=== PATIENT | male | born 1990 | race American Indian/Alaskan Native ===

== ENCOUNTER 2017-05-29 22:43 | Observation (INO) | payer SELFPAY ==
[2017-05-29 22:44] VITALS: BMI 23.5
[2017-05-29 23:30] LABS: BASO # 0.1 K/uL (0.0-0.2); BASO % 0.6 % (0.0-2.0); EOS # 0.2 K/uL (0.0-0.7); EOS % 1.7 % (0.0-4.0); HEMATOCRIT 50.7 % (35.0-51.0); LYMPH # 2.6 K/uL (1.0-4.3); LYMPH % 22.1 % (20.0-40.0); MEAN CELL VOLUME 97.4 fl (80.0-94.0); MEAN CORPUSCULAR HEMOGLOBIN 32.4 pg (27.0-31.0); MEAN CORPUSCULAR HGB CONC 33.2 g/dL (33.0-37.0); MEAN PLATELET VOLUME 7.7 fl (7.2-11.7); MONO # 1.1 K/uL (0.0-0.8); MONO % 9.6 % (0.0-10.0); NEUT # 7.8 K/uL (1.8-7.0); NRBC % 0.1 % (0.0-0.0); RED CELL DISTRIBUTION WIDTH 13.8 % (11.5-14.5); WHITE BLOOD COUNT 11.8 K/uL (4.8-10.8)
[2017-05-29 23:40] LABS: ALCOHOL SERUM 184 mg/dl (0-10); ALKALINE PHOSPHATASE 76 U/L (38-126); ALT/SGPT 43 U/L (21-72); AST/SGOT 39 U/L (17-59); BILIRUBIN,TOTAL 0.6 mg/dl (0.2-1.3); BLOOD UREA NITROGEN 11 mg/dl (9-20); CALCIUM 10.3 mg/dL (8.4-10.2); CARBON DIOXIDE 22 mmol/L (22-30); CHLORIDE 107 mmol/L (98-107); GFR AFRICAN-AMERICAN > 60; GLUCOSE,RANDOM 90 mg/dL (75-110); POTASSIUM 4.4 MMOL/L (3.6-5.0); SODIUM 146 mmol/l (132-148); TOTAL PROTEIN 8.6 G/DL (6.3-8.2)
--- NOTE | 2017-05-29 23:44 | ED PDOC ---
HPI: Psych/Substance Abuse Time Seen by Provider: 05/29/17 22:53 Chief Complaint (Nursing): Substance Abuse Chief Complaint (Provider): Substance Abuse ED Caveat: Intoxicated History Per: Patient History/Exam Limitations: intoxication Onset/Duration Of Symptoms: Days (x 1) Current Symptoms Are (Timing): Still Present Additional History Per: EMS Additional Complaint(s): Julio is a 26 y/o male who was brought to the ED by EMS for alcohol intoxication. Patient was found intoxicated in public. No medical complaints at this time. PMD: Unknown Past Medical History Reviewed: Historical Data, Nursing Documentation, Vital Signs Vital Signs: Last Vital Signs Temp 98.6 F 05/29/17 22:47 Pulse 98 H 05/29/17 22:47 Resp 18 05/29/17 22:47 BP 134/84 05/29/17 22:47 Pulse Ox 98 05/29/17 22:47 - Medical History PMH: No Chronic Diseases Denies: Chronic Kidney Disease - Family History Family History: States: Unknown Family Hx - Immunization History Hx Tetanus Toxoid Vaccination: Yes - Home Medications Home Medications: Ambulatory Orders Medication Instructions Recorded Unobtainable 05/30/17 - Allergies Allergies/Adverse Reactions: Allergies Allergy/AdvReac Type Severity Reaction Status Date / Time No Known Allergies Allergy Verified 06/14/16 10:27 Review of Systems Review Of Systems: ROS cannot be obtained secondary to pt's inabilty to answer questions. Physical Exam - Reviewed Nursing Documentation Reviewed: Yes Vital Signs Reviewed: Yes - Physical Exam Appears: Positive for: Non-toxic, No Acute Distress Head Exam: Positive for: ATRAUMATIC, NORMAL INSPECTION, NORMOCEPHALIC Skin: Positive for: Normal Color, Warm, Dry Eye Exam: Positive for: EOMI, Normal appearance, PERRL Neck: Positive for: Normal, Painless ROM Cardiovascular/Chest: Positive for: Regular Rate, Rhythm. Negative for: Murmur Respiratory: Positive for: Normal Breath Sounds. Negative for: Accessory Muscle Use, Respiratory Distress Gastrointestinal/Abdominal: Positive for: Normal Exam, Soft. Negative for: Tenderness Back: Positive for: Normal Inspection. Negative for: L CVA Tenderness, R CVA Tenderness, Vertebral Tenderness Extremity: Positive for: Normal ROM. Negative for: Deformity Neurologic/Psych: Positive for: Other (Slurred speech) - Laboratory Results Result Diagrams: 05/29/17 23:20 05/29/17 23:20 - ECG O2 Sat by Pulse Oximetry: 98 (RA) Pulse Ox Interpretation: Normal - Critical Care Total Time (In Min): 30 Medical Decision Making Medical Decision Making: Time: 22:54 Initial Impression: 26 y/o intoxicated male Initial Plan: --Accucheck --CBC --CMP --Urine drug screen --Alcohol serum --Placed on ED-OBS for alcohol intoxication See ED-OBS tab for all further documentation Scribe Attestation: Documented by Daphnie River, acting as a scribe for Gavin Lozada MD Provider Scribe Attestation: All medical record entries made by the Scribe were at my direction and personally dictated by me. I have reviewed the chart and agree that the record accurately reflects my personal performance of the history, physical exam, medical decision making, and the department course for this patient. I have also personally directed, reviewed, and agree with the discharge instructions and disposition. ED OBSERVATION Date of observation admission: 05/29/17 Time of observation admission: 22:54 - Observation admission statement Patient is being placed in observation because:: Alcohol intoxication - Goals of Observation Goals of observation are:: Clinical sobriety - Progress Note Progress Note: 05/29/17 Time: 22:54 --Patient resting. Vital signs stable. Time: 23:26 --Patient became agitated in the ED --Ordered Ativan and Haldol IM Time: 23:52 --Patient is high risk for elopement, self-injury, and staff injury --Ongoing agitation, patient necessitating 4 point restraints --Placed on 1:1 observation 05/30/17 Time: 00:30 --Patient is resting. Vital signs stable. Time: 02:00 --Patient continues to rest. Vital signs stable. Time: 03:30 --Patient is resting. Vital signs stable. Time: 04:57 --Patient is ambulating in the ED and speaking in full sentences. Requesting to go home. --Patient appears clinically sober and is medically stable for discharge. Disposition - Clinical Impression Clinical Impression: Alcohol intoxication - Patient ED Disposition Is Patient to be Admitted: No Counseled Patient/Family Regarding: Diagnosis, Need For Followup - Disposition Disposition: Routine/Home Disposition Time: 22:54 Condition: STABLE Forms: [employer] (Palestinian)
[2017-05-29 23:47] LABS: ALB/GLOB RATIO 1.5 (1.0-2.1)
[2017-05-30 00:05] VITALS: TEMP 98
[2017-05-30 05:19] VITALS: BP 144/78; PULSE 78; RESP 16; O2SAT 99
== END 2017-05-30 04:57 | disposition home or self-care (01) ==
LOC: H.ER 22:43 → H.EROBSV 22:54
PROVIDERS: ADMIT Emergency Medicine; ATTEND Emergency Medicine
DX: F10.129 Alcohol abuse with intoxication, unspecified (principal); Y90.6 Blood alcohol level of 120-199 mg/100 ml
CPT/HCPCS: 80053; 85025; 96372; 99285; G0378; G0480; J1630; J2060

== ENCOUNTER 2018-01-01 16:57 | Emergency (ER) | payer SELFPAY ==
[2018-01-01 16:57] VITALS: BMI 23.5
[2018-01-01 17:02] VITALS: TEMP 98.5
--- NOTE | 2018-01-01 18:32 | ED PDOC ---
HPI: Psych/Substance Abuse Time Seen by Provider: 01/01/18 17:09 Chief Complaint (Nursing): Substance Abuse Chief Complaint (Provider): ALcohol and PCP use History Per: Patient History/Exam Limitations: no limitations Onset/Duration Of Symptoms: Hrs Current Symptoms Are (Timing): Better Additional Complaint(s): 27 yo male brought in by EMS and police for evaluation after being in the streets without his shirt on being disruptive. Pt admits to PCP use and alcohol use today. Pt cooperative in ER. Pt has abrasion on the left upper arm and back. Denies pain. Past Medical History Reviewed: Historical Data, Nursing Documentation, Vital Signs Vital Signs: Last Vital Signs Temp 98.5 F 01/01/18 16:59 Pulse 107 H 01/01/18 16:59 Resp 16 01/01/18 16:59 BP 161/102 H 01/01/18 16:59 Pulse Ox 99 01/01/18 16:59 - Medical History PMH: No Chronic Diseases Denies: Chronic Kidney Disease - Surgical History Surgical History: No Surg Hx - Family History Family History: States: Unknown Family Hx - Living Arrangements Living Arrangements: With Family - Social History Current smoker - smoking cessation education provided: Yes Alcohol: Occasional Drugs: Cannabis, Other (PCP) - Immunization History Hx Tetanus Toxoid Vaccination: Yes - Home Medications Home Medications: Ambulatory Orders Medication Instructions Recorded Unobtainable 05/30/17 - Allergies Allergies/Adverse Reactions: Allergies Allergy/AdvReac Type Severity Reaction Status Date / Time No Known Allergies Allergy Verified 06/14/16 10:27 Review of Systems ROS Statement: Except As Marked, All Systems Reviewed And Found Negative Constitutional: Negative for: Fever, Chills Skin: Positive for: Other Psych: Positive for: Other Physical Exam - Reviewed Nursing Documentation Reviewed: Yes Vital Signs Reviewed: Yes - Physical Exam Appears: Positive for: Well, Non-toxic, No Acute Distress Head Exam: Positive for: ATRAUMATIC, NORMAL INSPECTION, NORMOCEPHALIC Skin: Positive for: Warm. Negative for: Normal Color (Abrasion upper left arm, upper back ) Eye Exam: Positive for: Normal appearance, EOMI, PERRL ENT: Positive for: Normal ENT Inspection Neck: Positive for: Normal, Painless ROM Cardiovascular/Chest: Positive for: Regular Rate, Rhythm Respiratory: Positive for: CNT, Normal Breath Sounds Gastrointestinal/Abdominal: Positive for: Normal Exam, Soft Back: Positive for: Normal Inspection Extremity: Positive for: Normal ROM Neurologic/Psych: Positive for: Alert, Oriented - ECG O2 Sat by Pulse Oximetry: 99 Medical Decision Making Medical Decision Making: (-) blood in urine. Wound cleaned and antibiotic ointment applied. Disposition - Clinical Impression Clinical Impression: PCP (phencyclidine) abuse, Multiple abrasions - Patient ED Disposition Is Patient to be Admitted: No Counseled Patient/Family Regarding: Diagnosis, Need For Followup - Disposition Disposition: Routine/Home Disposition Time: 18:34 Condition: GOOD Instructions: Drug Abuse and Drug Addiction (DC)
[2018-01-01 19:25] VITALS: BP 154/99; PULSE 99; RESP 18; O2SAT 100
== END 2018-01-01 19:25 | disposition home or self-care (01) ==
LOC: H.ER 16:57
DX: F16.10 Hallucinogen abuse, uncomplicated (principal); T07.XXXA Unspecified multiple injuries, initial encounter; F17.200 Nicotine dependence, unspecified, uncomplicated

== ENCOUNTER 2018-03-11 22:06 | Emergency (ER) | payer SELFPAY ==
[2018-03-11 22:06] VITALS: BMI 23.5
--- NOTE | 2018-03-11 22:48 | ED PDOC ---
HPI: Psych/Substance Abuse Time Seen by Provider: 03/11/18 22:29 Chief Complaint (Nursing): Substance Abuse Additional Complaint(s): 27 yo M presents to the ER for strange behavior/public intoxication, he was found urinating in the streets, patient admits to PCP use earlier today. Denies drinking alcohol or any other substance abuse. Reports no trauma, injury, fever , headache, chest pain, abdominal pain. States that "he's good." On further questioning, patient unable to give any further information. Denies any HI/SI. Past Medical History Vital Signs: Last Vital Signs Temp 98.4 F 03/11/18 22:08 Pulse 72 03/11/18 22:08 Resp 18 03/11/18 22:08 BP 138/82 03/11/18 22:08 Pulse Ox 98 03/11/18 22:08 - Medical History PMH: Denies: Chronic Kidney Disease - Family History Family History: States: Unknown Family Hx - Immunization History Hx Tetanus Toxoid Vaccination: Yes - Home Medications Home Medications: Ambulatory Orders Medication Instructions Recorded No Known Home Med 01/31/18 - Allergies Allergies/Adverse Reactions: Allergies Allergy/AdvReac Type Severity Reaction Status Date / Time No Known Allergies Allergy Verified 06/14/16 10:27 Review of Systems Review Of Systems: ROS cannot be obtained secondary to pt's inabilty to answer questions. Physical Exam - Physical Exam Appears: Positive for: Non-toxic, No Acute Distress Head Exam: Positive for: ATRAUMATIC, NORMAL INSPECTION, NORMOCEPHALIC Skin: Positive for: Normal Color, Warm, DRY Eye Exam: Positive for: Normal appearance, EOMI, PERRL, Conjunctival injection ENT: Positive for: Normal ENT Inspection, Other (+odor of alcohol) Neck: Positive for: Normal, Painless ROM Cardiovascular/Chest: Positive for: Regular Rate, Rhythm Respiratory: Positive for: CNT, Normal Breath Sounds Gastrointestinal/Abdominal: Positive for: Normal Exam, Soft. Negative for: Tenderness Back: Positive for: Normal Inspection Extremity: Positive for: Normal ROM. Negative for: Tenderness, Deformity, Swelling Neurologic/Psych: Positive for: Alert, chief engineer production II-XII, Oriented (x3), Gait (stable) , Other (+slurred speech ). Negative for: Motor/Sensory Deficits - Laboratory Results Result Diagrams: 03/11/18 23:20 03/11/18 23:20 - ECG O2 Sat by Pulse Oximetry: 98 Medical Decision Making Medical Decision Making: Plan : - Labs - ED observation until patient is clinically sober Labs reviewed : UDS +pcp, alcohol 47, rest of the lasb wnl. Case endorsed to SHA Santa at 0000 pending sobriety. Disposition - Clinical Impression Clinical Impression: PCP (phencyclidine) abuse - Disposition Disposition: Transfer of Care (Case endorsed to SHA Santa at 0000 pending sobriety.) Disposition Time: 00:00 Condition: STABLE Forms: [facility] (Icelandic) - PA / CHEMICAL CHECKER / Resident Statement MD/DO has reviewed & agrees with the documentation as recorded.
[2018-03-11 23:24] LABS: BASO % 0.3 % (0.0-2.0); EOS # 0.4 K/uL (0.0-0.7); HEMOGLOBIN 15.7 g/dL (12.0-18.0); LYMPH # 2.2 K/uL (1.0-4.3); LYMPH % 19.9 % (20.0-40.0); MEAN CELL VOLUME 98.8 fl (80.0-94.0); MEAN CORPUSCULAR HEMOGLOBIN 32.8 pg (27.0-31.0); MEAN CORPUSCULAR HGB CONC 33.2 g/dL (33.0-37.0); MEAN PLATELET VOLUME 7.3 fl (7.2-11.7); MONO # 0.8 K/uL (0.0-0.8); MONO % 7.4 % (0.0-10.0); NEUT # 7.7 K/uL (1.8-7.0); NEUT % 68.4 % (50.0-75.0); RBC 4.79 Mil/uL (4.40-5.90); RED CELL DISTRIBUTION WIDTH 12.6 % (11.5-14.5); WHITE BLOOD COUNT 11.2 K/uL (4.8-10.8)
[2018-03-11 23:34] LABS: BLOOD UREA NITROGEN 9 mg/dl (9-20); CALCIUM 9.5 mg/dL (8.4-10.2); GFR AFRICAN-AMERICAN > 60; GFR NON-AFRICAN AMERICAN > 60
[2018-03-11 23:44] LABS: BARBITURATES, UR NEGATIVE (NEGATIVE); BENZODIAZEPINES, UR NEGATIVE (NEGATIVE); OPIATES, UR NEGATIVE (NEGATIVE); PHENCYCLIDINE, UR POSITIVE (NEGATIVE)
--- NOTE | 2018-03-11 23:55 | ED PDOC ---
- Laboratory Results Result Diagrams: 03/11/18 23:20 03/11/18 23:20 - ECG O2 Sat by Pulse Oximetry: 98 (RA) Pulse Ox Interpretation: Normal Medical Decision Making Medical Decision Making: Case endorsed to documentation writerLizzy PA-C at 0000 due to shift change. Pertinent details reviewed. Patient pending clinical sobriety, re-evaluation, and further disposition. Labs reviewed. Serum A Urine drug screen: (+) PCP 1:1 observation continued due to flight risk as patient attempting to ambulate in ED hallways. Vitals stable. 0015 Patient becoming agitated and physically threatening to ED staff. Ativan 2mg IM ordered. Patient placed in 4 point restraints as he will not stay in room and keeps approaching technical program manager sitting on 1:1 in threatening manner. 0140 Patient sleeping comfortably in stretcher. 4 point restraints removed. 0415 On re-evaluation, patient offers no complaints at this time. Patient now AAOx3, in no acute distress. Ambulatory in ED with steady, unassisted gait. On exam, neck is supple, lungs CTA, cardiac RRR, abdomen soft/nontender, neuro exam shows no focal findings. VSS, stable for discharge. Patient observed in ED for 6+ hours with no evidence of clinical deterioration. Diagnostic results d/w the patient in great detail. Dx of PCP abuse d/w the patient. Based on history, exam and diagnostic results plan will be for discharge and outpatient follow up. Advised to follow up with primary care physician/clinic/referred provider in 1- 2 days without fail. Return to the emergency room at any time for any new or worsening symptoms. Patient states he fully agrees with and understands discharge instructions. States that he agrees with the plan and disposition. Verbalized and repeated discharge instructions and plan. I have given the patient opportunity to ask any additional questions. Disposition Counseled Patient/Family Regarding: Diagnosis, Need For Followup - Clinical Impression Clinical Impression: PCP (phencyclidine) abuse - POA Present On Arrival: None - Disposition Referrals: [facility] [Outside] Disposition: Routine/Home Disposition Time: 04:17 Condition: STABLE Additional Instructions: FOLLOW UP WITH PMD/CLINIC IN 1-2 DAYS WITHOUT FAIL. RETURN TO ED WITH ANY NEW OR WORSENING SYMPTOMS. Instructions: Drug Abuse and Drug Addiction (DC), Drug Abuse Treatment Forms: [employer] (Lithuanian) Print Language: SERBIAN Results - Lab Results Lab Results: 03/11/18 03/11/18 03/11/18 23:20 23:20 23:20 WBC 11.2 H RBC 4.79 Hgb 15.7 Hct 47.3 MCV 98.8 H MCH 32.8 H MCHC 33.2 RDW 12.6 Plt Count 237 MPV 7.3 Neut % (Auto) 68.4 Lymph % (Auto) 19.9 L [place] % (Auto) 7.4 Eos % (Auto) 4.0 Baso % (Auto) 0.3 Neut # (Auto) 7.7 H Lymph # (Auto) 2.2 [place] # (Auto) 0.8 Eos # (Auto) 0.4 Baso # (Auto) 0.0 Sodium 144 Potassium 4.1 Chloride 105 Carbon Dioxide 27 Anion Gap 16 BUN 9 Creatinine 1.1 Est GFR ( Amer) > 60 Est GFR (Non-Af Amer) > 60 Random Glucose 87 Calcium 9.5 Urine Opiates Screen Negative Urine Methadone Screen Negative Ur Barbiturates Screen Negative Ur Phencyclidine Scrn Positive H Ur Amphetamines Screen Negative U Benzodiazepines Scrn Negative U Oth Cocaine Metabols Negative U Cannabinoids Screen Negative Alcohol, Quantitative 47 H
[2018-03-12 04:32] VITALS: BP 131/77; PULSE 80; RESP 16; TEMP 97.9
[2018-03-12 05:48] VITALS: O2SAT 98
== END 2018-03-12 04:25 | disposition home or self-care (01) ==
LOC: H.ER 22:06
DX: F16.10 Hallucinogen abuse, uncomplicated (principal)
CPT/HCPCS: 80048; 85025; 96372; 99285; G0480; J2060

== ENCOUNTER 2018-11-22 16:41 | Emergency (ER) | payer MEDICAID ==
[2018-11-22 16:41] VITALS: BMI 23.5
[2018-11-22 17:02] VITALS: PULSE 73; RESP 18; TEMP 97.7; O2SAT 99
[2018-11-22 17:03] VITALS: BP 159/94
--- NOTE | 2018-11-22 17:47 | ED PDOC ---
HPI: General Adult Time Seen by Provider: 11/22/18 17:40 Chief Complaint (Nursing): Finger,Hand,&Wrist Chief Complaint (Provider): Finger,Hand,&Wrist History Per: Patient History/Exam Limitations: no limitations Onset/Duration Of Symptoms: Days Current Symptoms Are (Timing): Still Present Additional Complaint(s): 28 year old male with no past medical history who is presenting to the ED for evaluation of numbness to tips of right hand (1,2,3,4 digits) noted a few days ago. Patient states that he works a lot with his hands and has repetitive hand motions. He denies any fall, injury, or trauma to hand. He denies any other medical complaints or extremity weakness or pain. PMD: none provided Past Medical History Reviewed: Historical Data, Nursing Documentation, Vital Signs Vital Signs: Last Vital Signs Temp 97.7 F 11/22/18 17:00 Pulse 73 11/22/18 17:00 Resp 18 11/22/18 17:00 BP 159/94 H 11/22/18 17:00 Pulse Ox 99 11/22/18 17:00 - Medical History PMH: No Chronic Diseases Denies: Chronic Kidney Disease - Surgical History Surgical History: No Surg Hx - Family History Family History: States: Unknown Family Hx - Social History Current smoker - smoking cessation education provided: Yes Alcohol: Social Drugs: Other (PCP) - Immunization History Hx Tetanus Toxoid Vaccination: Yes Hx Influenza Vaccination: No Hx Pneumococcal Vaccination: No - Home Medications Home Medications: Ambulatory Orders Medication Instructions Recorded RX: Naproxen 375 mg PO Q8 PRN #21 tablet 11/22/18 - Allergies Allergies/Adverse Reactions: Allergies Allergy/AdvReac Type Severity Reaction Status Date / Time No Known Allergies Allergy Verified 09/23/18 22:49 Review of Systems ROS Statement: Except As Marked, All Systems Reviewed And Found Negative Musculoskeletal: Positive for: Hand Pain (tingling and numbness to tips of fingers ) Physical Exam - Reviewed Nursing Documentation Reviewed: Yes Vital Signs Reviewed: Yes - Physical Exam Appears: Positive for: Well, Non-toxic, No Acute Distress Head Exam: Positive for: ATRAUMATIC, NORMAL INSPECTION, NORMOCEPHALIC Skin: Positive for: Normal Color, Warm, DRY Eye Exam: Positive for: Normal appearance Extremity: Positive for: Normal ROM, Other (normal exam of right hand no deformity or swelling noted ). Negative for: Deformity, Swelling Neurologic/Psych: Positive for: Alert, Oriented. Negative for: Motor/Sensory Deficits - ECG O2 Sat by Pulse Oximetry: 99 (RA) Pulse Ox Interpretation: Normal Medical Decision Making Medical Decision Making: Time: 17:48 Patient explained that he probably has carpel tunnel and will be given a referral for outpatient follow up. Splint provided in the ED. He will be discharged home and all questions were answered. Patient agrees with discharge plan and agrees with plan for outpatient followup. Scribe Attestation: Documented by, Sanam Doe acting as a scribe for Griffin Last PA-C. Provider Scribe Attestation: All medical record entries made by the Scribe were at my direction and personally dictated by me. I have reviewed the chart and agree that the record accurately reflects my personal performance of the history, physical exam, medical decision making, and the department course for this patient. I have also personally directed, reviewed, and agree with the discharge instructions and disposition. Disposition - Clinical Impression Clinical Impression: Paresthesia - Patient ED Disposition Is Patient to be Admitted: No - Disposition Referrals: [facility] [Outside] Emmanuel Woods MD [Staff Provider] - Disposition: Routine/Home Disposition Time: 17:45 Condition: FAIR Prescriptions: RX: Naproxen 375 mg PO Q8 PRN #21 tablet PRN Reason: Pain, Moderate (4-7) Instructions: Paresthesias (DC) Forms: [facility] ED School/Work Excuse
== END 2018-11-22 18:31 | disposition home or self-care (01) ==
LOC: H.ER 16:41
DX: R20.2 Paresthesia of skin (principal)